=== PATIENT | female | born 1995 | race Caucasian/White ===

== ENCOUNTER 2020-04-15 12:55 | Outpatient (CLI) | payer BC, MEDICAID, SELFPAY ==
[2020-04-15] VITALS (7 sets, daily range): BP systolic 110–129; BP diastolic 63–76; PULSE 88–110; TEMP 36.9; O2SAT 99; BMI 22.4
[2020-04-15 13:30] LABS: Hematocrit 35.4 % (37-47); Hemoglobin 11.9 g/dL (12.0-15.0); Mean Corp Hgb Conc 33.6 g/dL (32-36); Mean Corpuscular Hgb 30.1 pg (27.0-32.0); Mean Corpuscular Volume 89.4 fL (81-99); Mean Platelet Vol. 11.5 fl (6.2-12.0); Platelet Count 143 K/mm3 (150-450); RBC Distribution Width CV 12.3 % (11.6-14.6); RBC Distribution Width SD 39.8 fl (35.1-43.9); Red Blood Count 3.96 M/mm3 (4.2-5.4); White Blood Count 7.4 K/mm3 (4.4-11.0)
[2020-04-15 13:39] LABS: Prothrombin Time (Protime)PT. 12.9 SECONDS (11.7-14.9)
[2020-04-15 13:40] LABS: Partial Thromboplast Time 26.2 Seconds (24.1-36.2)
[2020-04-15 13:43] LABS: Protein, Urine (Random) < 6.0 mg/dL (<11.9)
[2020-04-15 13:44] LABS: AST(SGOT) 12 U/L (15-37); Alanine Aminotransfer ALT/SGPT 17 U/L (13-56); Creatinine, Serum 0.57 mg/dL (0.55-1.02); EST Glomerular Filtration Rate 138 mL/min (>60); Est Glom Filt Rate - Afr Amer 167 mL/min (>60); Uric Acid 4.1 mg/dL (2.6-6.0)
--- NOTE | 2020-04-15 14:43 | OB.TRI.NOTE ---
- Problem List (1) Elevated BP without diagnosis of hypertension Status: Acute History of Present Illness Date of Service: 04/15/20 Was patient seen by the physician?: No Reason For Visit: EBP Date of Service: 04/15/20 Final MANISHA: 05/27/20 Gestational age: 34 Weeks and 0 Days History of Present Illness: Patient is a at 34.0 weeks gestation that presented in the office with increased blood pressures taken at home. Patient had headache last Monday and had emesis x2. Denies current headache, vision changes or RUQ pain. While in office, had some elevated pressures and was sent to labor and delivery to have pre-e labs and urine taken. Allergies Penicillins [PCN] Allergy (Verified 04/15/20 14:47) PT UNSURE OF REACTION Laboratory Studies: Laboratory Tests 04/15/20 04/15/20 04/15/20 Range/Units 13:20 13:20 13:20 WBC 7.4 (4.4-11.0) K/mm3 RBC 3.96 L (4.2-5.4) M/mm3 Hgb 11.9 L (12.0-15.0) g/dL Hct 35.4 L (37-47) % MCV 89.4 (81-99) fL MCH 30.1 (27.0-32.0) pg MCHC 33.6 (32-36) g/dL RDW Std Deviation 39.8 (35.1-43.9) fl RDW Coeff of Marleny 12.3 (11.6-14.6) % Plt Count 143 L (150-450) K/mm3 MPV 11.5 (6.2-12.0) fl PT 12.9 (11.7-14.9) SECONDS INR 1.0 APTT 26.2 (24.1-36.2) Seconds Creatinine 0.57 (0.55-1.02) mg/dL Estim Creat Clear Calc 170.10 ml/min Est GFR (MDRD) Af Amer 167 (>60) mL/min Est GFR (MDRD) Non-Af 138 (>60) mL/min Uric Acid 4.1 (2.6-6.0) mg/dL AST 12 L (15-37) U/L ALT 17 (13-56) U/L U Random Total Protein (<11.9) mg/dL Urine Creatinine (NO RANGE EST.) mg/dL Protein/Creatinin Ratio 04/15/20 Range/Units 13:10 WBC (4.4-11.0) K/mm3 RBC (4.2-5.4) M/mm3 Hgb (12.0-15.0) g/dL Hct (37-47) % MCV (81-99) fL MCH (27.0-32.0) pg MCHC (32-36) g/dL RDW Std Deviation (35.1-43.9) fl RDW Coeff of Marleny (11.6-14.6) % Plt Count (150-450) K/mm3 MPV (6.2-12.0) fl PT (11.7-14.9) SECONDS INR APTT (24.1-36.2) Seconds Creatinine (0.55-1.02) mg/dL Estim Creat Clear Calc ml/min Est GFR (MDRD) Af Amer (>60) mL/min Est GFR (MDRD) Non-Af (>60) mL/min Uric Acid (2.6-6.0) mg/dL AST (15-37) U/L ALT (13-56) U/L U Random Total Protein < 6.0 (<11.9) mg/dL Urine Creatinine 21.00 (NO RANGE EST.) mg/dL Protein/Creatinin Ratio TNP Physical Exam Vitals: Vital Signs Temp Pulse BP Pulse Ox 98.5 F 89 110/69 99 04/15/20 13:14 04/15/20 14:30 04/15/20 14:30 04/15/20 13:14 NST - FHR Rate Baby A Baseline: 145 Variability:: Moderate Accelerations:: 15 x 15 Decelerations:: None FHR Category:: Category I Uterine Activity:: none Impression/Plan Patient is a at 34 weeks gestation with increased blood pressures in office. A/P Pre eclampsia labs and protein/creat ratio normal Pressures while in triage were : 110/69, 113/64, 115/63, 119/65 Patient denies any headache, vision changes or RUQ pain Plan: Discharge patient home Patient to take and record daily BP and report findings to Td Posey next week (35 weeks gestation) Patient to come into office at 36 weeks for JOSE Patient to call or come to hospital if any severe headaches, vision changes , RUQ pain or severe range BPs Dr. Posey agrees with plan of care
== END 2020-04-15 14:50 | disposition home or self-care (01) ==
LOC: WPOUT 13:09 → OBT 13:10
PROVIDERS: Referring Provider Advanced Practice Midwife; Visit Provider Advanced Practice Midwife
DX: O16.3 Unspecified maternal hypertension, third trimester (principal); Z3A.34 34 weeks gestation of pregnancy
CPT/HCPCS: 36415; 59025; 59050; 82565; 82570; 84156; 84450; 84460; 84550; 85027; 85610; 85730; 99218; G0378

== ENCOUNTER → 2020-05-18 09:45 | Outpatient (CLI) | payer BC, MEDICAID, SELFPAY ==
[2020-04-15 13:31] VITALS: BMI 22.4
== END ==
PROVIDERS: Referring Provider Obstetrics & Gynecology; Visit Provider Obstetrics & Gynecology
DX: Z11.59 Encounter for screening for other viral diseases (principal)
CPT/HCPCS: 87635; G2023; U0003

== ENCOUNTER 2020-05-21 17:05 | Inpatient (IN) | payer BC, MEDICAID, SELFPAY ==
[2020-04-15 13:31] VITALS: BMI 22.4
[2020-05-21] VITALS (10 sets, daily range): BP systolic 111–143; BP diastolic 67–94; PULSE 62–90; TEMP 36.4–37.2; O2SAT 91–100; BMI 23.1
[2020-05-21] MEDS: 0.9% Normal Saline Single 100 ML IV.SOLN. IY (17:25)
[2020-05-21] MEDS: Lactated Ringers 1,000 ML 50 ML IV (17:32)
[2020-05-21 18:01] LABS: Absolute Lymphocyte Count 0.99 X10^3/uL (0.83-4.51); Absolute Neutrophil Count 5.9 X10^3/uL (2.0-7.7); Basophil# 0.01 X10^3/uL; Basophil% 0.1 % (0-1); Eosinophil# 0.03 X10^3/uL; Eosinophils% 0.4 % (0-5); Hematocrit 37.1 % (37-47); Hemoglobin 12.3 g/dL (12.0-15.0); Lymphocyte # 0.99 X10^3/ul (4.0); Lymphocyte % 13.2 % (19-41); Mean Corp Hgb Conc 33.2 g/dL (32-36); Mean Corpuscular Hgb 29.8 pg (27.0-32.0); Mean Corpuscular Volume 89.8 fL (81-99); Mean Platelet Vol. 12.8 fl (6.2-12.0); Monocyte# 0.57 X10^3/uL; Monocyte% 7.6 % (0-10); NRBC Flagged by Analyzer 0 % (0-5); Neutrophil # 5.88 X10^3/uL (2.7-7.7); Neutrophil % 78.2 % (47-70); Platelet Count 154 K/mm3 (150-450); RBC Distribution Width CV 12.8 % (11.6-14.6); RBC Distribution Width SD 41.1 fl (35.1-43.9); Red Blood Count 4.13 M/mm3 (4.2-5.4); White Blood Count 7.5 K/mm3 (4.4-11.0)
--- NOTE | 2020-05-21 18:10 | PCM.HP.OB ---
- Problem List (1) 39 weeks gestation of Status: Acute (2) Thrombocytopenia affecting Status: Acute (3) Ramesh-Danlos syndrome Status: Acute (4) Group beta Strep positive Status: Acute History Date of Admission: 05/21/20 Gestational age: 39.1 History of this : This is a 25 year-old, G [1], P [0], at 39.1 weeks gestational age here for induction of labor. Reports cramping has increased over the last couple of days. Denies any loss of fluid, or vaginal bleeding. Positive movement. course complicated by thrombocytopenia, Ramesh Danlos Syndrome and group beta strep positive. Allergies Penicillins [PCN] Allergy (Mild, Verified 05/21/20 17:45) PT UNSURE OF REACTION had as a child unsure of what the reaction was lactose Allergy (Verified 05/21/20 17:45) Abd cramps/diarrhea Alcohol: None Number of Fetus(es): 1 NST - FHR Rate Baby A Baseline: 140 Variability:: Moderate Accelerations:: 15 x 15 Decelerations:: None NST Reactive:: Yes FHR Category:: Category I Uterine Activity:: Irregular contractions noted History Past Pregnancies: Past Pregnancies Delivery Date Name GA/ Weeks Outcome Route Wt Infant Sex Labor Length Anesthesia Delivery Location Provider FOB Labs: O + Rubella - immune HB- neg HC- neg RPR- NR HIV- NR GC/CH- neg GBS- positive Platelets on 05/06/20 were 150 Expected Delivery Method: Spontaneous Vaginal Review of Systems Constitutional: Denies: Anorexia, Chills, Fever Eyes: Denies: Pain, Vision Change HEENT: Denies: Head Aches Cardiovascular: Denies: Chest Pain, Edema Respiratory: Denies: Cough, Shortness of Breath Gastrointestinal: Denies: Abdominal Pain Genitourinary: Denies: Dysuria Physical Exam Vitals: Vital Signs Pulse BP 84 123/80 H 05/21/20 17:49 05/21/20 17:49 General: Alert, Oriented x3 Cardiovascular: Regular rate Lungs: Normal air movement Abdomen: Soft, Non Tender, Gravid Neurological: Cranial nerves II-XII grossly intact Estimated gestational size: Appropriate for gestational size Presentation: Cephalic Cervix Dilation (cm): 1.5 Station: -2 Effacement (%): 70 Assessment/Plan All Active Problems Elevated BP without diagnosis of hypertension (Acute) 39 weeks gestation of (Acute) Thrombocytopenia affecting (Acute) Ramesh-Danlos syndrome (Acute) Group beta Strep positive (Acute) This is a 25 year-old, G [1], P [0], at 39.1 weeks gestational age here for induction of labor.- Ramirez score >8, Ramesh Danlos Syndrome A/P Category 1 tracing Admit to Labor and Delivery Routine labs Place Marroquin bulb Start Cytotec 25mcg Po every 4 hours Pain medication as indicated by patient Group Beta Strep- Positive, start Clindamycin IV (PCN allergy) COVID Test completed on 05/18/20- no results at this time Dr. Cagle notified of admission to labor and delivery and plan of care and is the collaborating physician
--- NOTE | 2020-05-21 18:33 | PCM.PN.BLA ---
Progress Note Patient seen at bedside CE completed and S.R.O.M for clear, small amount of fluid 1.5/70/-2 No placement of Marroquin bulb due to SROM Continue with plan of care- Cytotec 25 mcg PO every 4 hours Continue to monitor Anticipate STROKE Vital Signs/Narrative: Vital Signs Pulse BP 05/21/20 17:49 84 123/80 H 05/21/20 17:20 90 143/94 H
[2020-05-21] MEDS: miSOPROStol 25 MCG TABLET PO ×2 (19:36→23:40)
[2020-05-21] MEDS: Acetaminophen 325 MG Tablet PO (23:42)
[2020-05-22] VITALS (56 sets, daily range): BP systolic 102–142; BP diastolic 56–93; PULSE 59–150; RESP 16; TEMP 36–37.2; O2SAT 93–99
[2020-05-22] MEDS: fentaNYL 100 MCG/2 ML Ampul IV (02:03)
[2020-05-22] MEDS: 0.9% Saline Lock 10 ML Syringe IV ×2 (02:03→15:39)
[2020-05-22] MEDS: Lactated Ringers 500 ML 999 ML IV ×2 (03:59→06:25)
[2020-05-22] MEDS: fentaNYL-bupivacaine (epidural) 100 ML BAG EPIDURAL ×2 (05:02→09:08)
[2020-05-22] MEDS: Oxytocin 30 units/NS 500 ml 30 UNITS/500 ML IV.SOLN IV (05:22)
--- NOTE | 2020-05-22 07:15 | PCM.PN.OB ---
Patient Problems: Active and Suspected Problems 39 weeks gestation of (Acute) Thrombocytopenia affecting (Acute) Ramesh-Danlos syndrome (Acute) Group beta Strep positive (Acute) Subjective: Patient seen at bedside. Received epidural and denies any pain. Was able to rest last night. Objective: Pitocin running at 2mu/min. CE- 3.5/80/-1 Continues to leak clear fluid - Physical Exam Vitals/I&O's: Vital Signs Temp Pulse BP Pulse Ox 98.1 F 62 115/73 97 05/22/20 04:30 05/22/20 06:32 05/22/20 06:32 05/22/20 06:25 Weight: 169 lb 4 oz Body Mass Index (BMI) 23.1 Intake and Output for Last 24 Hours 05/20/20 05/21/20 05/22/20 23:59 23:59 23:59 Intake Total 1379.33 / 1379.33 3117.03 / 3117.03 Output Total 100 / 100 250 / 250 Balance 1279.33 / 1279.33 2867.03 / 2867.03 General: Alert, Oriented x3 Lungs: Normal air movement Cardiovascular: Regular Rhythm Abdomen: Soft, Non Tender, Gravid Skin: No rashes Neurological: Cranial nerves II-XII grossly intact Psych/Mental Status: Normal Affect Laboratory Results 05/21/20 17:32: WBC 7.5, RBC 4.13 L, Hgb 12.3, Hct 37.1, MCV 89.8, MCH 29.8, MCHC 33.2, RDW Std Deviation 41.1, RDW Coeff of Marleny 12.8, Plt Count 154, MPV 12.8 H, Immature Gran % (Auto) 0.500, Neut % (Auto) 78.2 H, Lymph % (Auto) 13.2 L, [place] % (Auto) 7.6, Eos % (Auto) 0.4, Baso % (Auto) 0.1, Absolute Neuts (auto) 5.9, Absolute Lymphs (auto) 0.99, Nucleated RBC % 0 05/21/20 17:32: Blood Type O POSITIVE, Antibody Screen NEGATIVE Current Medications Acetaminophen (Tylenol) 325 - 650 mg PO Q4H PRN PRN PRN Reason: Pain Score 1-3/10 Last Admin: 05/21/20 23:42 Dose: 650 mg Documented by: Al Hydroxide/Mg Hydroxide (Mylanta Ii) 15 - 30 ml PO Q4H PRN PRN PRN Reason: INDIGESTION Citric Acid/Sodium Citrate (Bicitra) 30 ml PO X1 PRN PRN Reason: Section Ephedrine Sulfate () 10 mg IV Q10M PRN PRN Reason: hypotension Ephedrine Sulfate () 10 mg IM Q30M PRN PRN Reason: hypotension Fentanyl Citrate (Sublimaze (100mcg Ampule)) 25 - 50 mcg IV Q2H PRN PRN PRN Reason: Pain Score 4-10/10 Last Admin: 05/22/20 02:03 Dose: 50 mcg Documented by: Fentanyl/Bupivacaine/Sodium Chlor () 0 ml EPIDURAL UD [facility]; Protocol Last Admin: 05/22/20 05:02 Dose: 100 ml Documented by: Lactated Ringer's () 500 mls @ 999 mls/hr IV .Q31M PRN PRN Reason: Epidural Last Infusion: 05/22/20 04:30 Dose: Infused Documented by: Lactated Ringer's () 500 mls @ 999 mls/hr IV .Q31M PRN PRN Reason: Corrective Measures Last Infusion: 05/22/20 06:57 Dose: Infused Documented by: Lactated Ringer's () 1,000 mls @ 50 mls/hr IV .Q20H [facility] Last Infusion: 05/22/20 06:55 Dose: 200 mls/hr Documented by: Oxytocin/Sodium Chloride () 30 units in 500 mls @ 2 mls/hr IV .Q250H [facility] Last Infusion: 05/22/20 06:43 Dose: 0 mls/hr Documented by: Clindamycin Phosphate 900 mg/ (Dextrose) 106 mls @ 150 mls/hr IV Q8H [facility] Last Infusion: 05/22/20 03:00 Dose: Infused Documented by: Naloxone HCl 4 mg/ Dextrose 504 mls @ 0 mls/hr IV .Q0M PRN; Protocol PRN Reason: To maintain Resp. rate >10 Nalbuphine HCl (Nubain) 5 mg IV Q3H PRN PRN PRN Reason: ITCHING Naloxone HCl (Narcan) 0.02 mg IV Q1M PRN PRN Reason: RR< 10 AND PT UNRESPONSIVE Ondansetron HCl (Zofran) 4 mg IV Q4H PRN PRN PRN Reason: NAUSEA Prochlorperazine Edisylate (Compazine Iv) 10 mg IV Q6H PRN PRN PRN Reason: NAUSEA Sodium Chloride () 10 - 40 ml IV X1 PRN PRN Reason: SALINE FLUSH Last Admin: 05/22/20 02:03 Dose: 10 ml Documented by: Medical Necessity - Tobacco Use Smoking Status: Never smoker Assessment/Plan All Active Problems Elevated BP without diagnosis of hypertension (Acute) 39 weeks gestation of (Acute) Thrombocytopenia affecting (Acute) Ramesh-Danlos syndrome (Acute) Group beta Strep positive (Acute) A/P at 39.2 weeks gestation for induction of labor Continue plan of care GBS + Clindamycin 900 mg every 8 hours until delivery Titrate pitocin IV per protocol Dr. Posey updated on patient's status Anticipate
[2020-05-22] MEDS: Ondansetron 4 MG/2 ML Vial IV (07:21)
[2020-05-22] MEDS: proCHLORPERazine 10 MG/2 ML Vial IV (08:32)
[2020-05-22] MEDS: Lactated Ringers 1,000 ML 200 ML IV (09:08)
[2020-05-22] MEDS: Oxytocin 30 units/NS 500 ml 30 UNITS/500 ML IV.SOLN 334 UNITS IV (13:15)
--- NOTE | 2020-05-22 13:35 | PCM.OPRPT ---
Problem List (1) Vaginal delivery Status: Acute (2) 39 weeks gestation of Status: Acute (3) Ramesh-Danlos syndrome Status: Acute (4) Group beta Strep positive Status: Acute Report of Operation Date of Procedure: 05/22/20 Pre-Operative Diagnosis: 39 week gestation, primiparous patient, hypermobile EDS, matenal discomfort Post-Operative Diagnosis: As above Surgery/Procedure Performed:: Description of Surgical Findings:: Complete and pushing. Patient pushed for about 30 minutes. Head of infant was delivered in occiput anterior position over a second-degree laceration. The shoulders, followed by the body of the , were delivered without any force or delay. A viable male infant was delivered easily and atraumatically and placed on maternal abdomen. Cord was clamped and cut after 60 sec delay. Cord gases were obtained. Placenta was delivered spontaneously. Placenta was normal noted to be normal-appearing and intact with a three-vessel cord. Uterus was explored x1. Bleeding hemostatic and fundus firm. A second-degree perineal laceration was repaired in usual fashion using 3-0 Vicryl. Vaginal sweep was performed. Sponge and instrument counts were correct. Type of Anesthesia:: Epidural Special Medications: None Specimen's removed: Placenta Drains: Marroquin Estimated Blood Loss (mL): 350 Description of Procedure: See above Grafts/Implants Used: None - Complications None - Admit VTE Documentation VTE Present on Admission: No Vaginal Delivery Maternal Presentation: Elective Induction Method of Induction: Pitocin, Cytotec Amniotic Membrane Rupture Type: Artificial Amniotic Fluid Description: Clear Surgery/ Procedure Performed: Spontaneous Vaginal Delivery Type of Anesthesia: Epidural Presentation: Vertex Placental Delivery Description: Spontaneous Cord Vessel Description: 3 Vessels Cord Entanglement: None Drain: Marroquin to straight drain Infant A gender: Male (1 minute): 8 (5 minute): 9 Episiotomy Description: None Laceration: 2nd degree Medications given after delivery: IV Pitocin Complications: None
[2020-05-22] MEDS: Ibuprofen 600 MG Tablet PO ×2 (15:20→23:53)
[2020-05-22] MEDS: Acetaminophen 500 MG Tablet 1000 MG PO (20:10)
[2020-05-23] VITALS (11 sets, daily range): BP systolic 109–129; BP diastolic 66–86; PULSE 65–90; RESP 16–18; TEMP 36.3–37.1; O2SAT 96–97
[2020-05-23] MEDS: Ibuprofen 600 MG Tablet PO ×3 (06:24→18:20)
--- NOTE | 2020-05-23 07:33 | PCM.PN.OB ---
Patient Problems: Active and Suspected Problems 39 weeks gestation of (Acute) Thrombocytopenia affecting (Acute) Ramesh-Danlos syndrome (Acute) Group beta Strep positive (Acute) Vaginal delivery (Acute) Subjective: Patient doing well. Ambulating and voiding without difficulty. Tolerating regular diet without nausea or vomiting. Lochia normal. She denies lightheadedness, dizziness, chest pain, shortness of breath, leg pain. She is bottle feeding. - Physical Exam Vitals/I&O's: Vital Signs Temp Pulse Resp BP Pulse Ox 98.7 F 65 16 109/66 99 05/23/20 04:00 05/23/20 04:31 05/23/20 04:00 05/23/20 04:31 05/22/20 15:35 Oxygen Delivery Method Room Air Weight: 169 lb 4 oz Body Mass Index (BMI) 23.1 Intake and Output for Last 24 Hours 05/21/20 05/22/20 05/23/20 23:59 23:59 23:59 Intake Total 1379.33 / 1379.33 6419.81 / 6419.81 Output Total 100 / 100 3400 / 3400 Balance 1279.33 / 1279.33 3019.81 / 3019.81 General: Alert, No apparent distress HEENT: Atraumatic Abdomen: Soft, Non-Distended Extremities: No edema Skin: No rashes Neurological: Neuro grossly intact Psych/Mental Status: Normal Affect, Appropriate Current Medications Acetaminophen (Tylenol) 1,000 mg PO Q8H PRN PRN PRN Reason: Pain Score 1-3/10 Last Admin: 05/22/20 20:10 Dose: 1,000 mg Documented by: Bisacodyl (Dulcolax) 10 mg RECTAL UD PRN PRN Reason: If no BM Dibucaine (Dibucaine) 1 applic TOPICAL TID PRN PRN; Protocol PRN Reason: Discomfort Hydrocortisone (Hytone) 1 applic TOPICAL TID PRN PRN; Protocol PRN Reason: Discomfort Ibuprofen (Motrin) 600 mg PO Q6H PRN PRN PRN Reason: Pain Score 1-3/10 Last Admin: 05/23/20 06:24 Dose: 600 mg Documented by: Methylergonovine Maleate (Methergine) 0.2 mg IM X1 PRN PRN Reason: Excess bleeding/uterine atony Ondansetron HCl (Zofran) 4 mg IV Q4H PRN PRN PRN Reason: Nausea Senna/Docusate Sodium (Senokot-S, Maribell-Colace) 1 - 2 tablet PO DAILY PRN PRN PRN Reason: Constipation Simethicone (Mylicon) 80 mg PO PCHS PRN PRN Reason: Indigestion/Stomach pain Sodium Chloride () 5 - 15 ml IV UD PRN PRN Reason: SALINE FLUSH Last Admin: 05/22/20 15:39 Dose: 10 ml Documented by: Medical Necessity - Tobacco Use Smoking Status: Never smoker Assessment/Plan All Active Problems Elevated BP without diagnosis of hypertension (Acute) 39 weeks gestation of (Acute) Thrombocytopenia affecting (Acute) Ramesh-Danlos syndrome (Acute) Group beta Strep positive (Acute) Vaginal delivery (Acute) Patient is day 1 status post a spontaneous vaginal delivery. She is doing well. Bottlefeeding. Routine care anticipate discharge home tomorrow.
[2020-05-23] MEDS: Acetaminophen 500 MG Tablet 1000 MG PO (22:59)
[2020-05-24] MEDS: Ibuprofen 600 MG Tablet PO ×2 (00:46→06:52)
[2020-05-24 01:07] VITALS: BP 124/78; PULSE 88; TEMP 36.6
[2020-05-24 01:08] VITALS: BP 124/78; PULSE 88; RESP 18; TEMP 36.6
[2020-05-24 08:18] VITALS: TEMP 36.4
[2020-05-24 08:19] VITALS: BP 124/79; PULSE 93
--- NOTE | 2020-05-24 08:26 | PCM.PN.OB ---
Patient Problems: Active and Suspected Problems 39 weeks gestation of (Acute) Thrombocytopenia affecting (Acute) Ramesh-Danlos syndrome (Acute) Group beta Strep positive (Acute) Vaginal delivery (Acute) Subjective: Patient doing well. Ambulating and voiding without difficulty. Tolerating regular diet without nausea or vomiting. Lochia normal. Denies lightheadedness, dizziness, chest pain, shortness of breath, leg pain. Bottle Feeding. - Physical Exam Vitals/I&O's: Vital Signs Temp Pulse Resp BP Pulse Ox 97.5 F L 93 18 124/79 H 97 05/24/20 08:18 05/24/20 08:19 05/24/20 01:08 05/24/20 08:19 05/23/20 14:01 Oxygen Delivery Method Room Air Weight: 169 lb 4 oz Body Mass Index (BMI) 23.1 Intake and Output for Last 24 Hours 05/22/20 05/23/20 05/24/20 23:59 23:59 23:59 Intake Total 6419.81 / 6419.81 Output Total 3400 / 3400 Balance 3019.81 / 3019.81 General: Alert, No apparent distress HEENT: Atraumatic Abdomen: Soft, Non-Distended Extremities: No edema, No Calf Tenderness Skin: No rashes Neurological: Neuro grossly intact Psych/Mental Status: Normal Affect, Appropriate Current Medications Acetaminophen (Tylenol) 1,000 mg PO Q8H PRN PRN PRN Reason: Pain Score 1-3/10 Last Admin: 05/23/20 22:59 Dose: 1,000 mg Documented by: Bisacodyl (Dulcolax) 10 mg RECTAL UD PRN PRN Reason: If no BM Dibucaine (Dibucaine) 1 applic TOPICAL TID PRN PRN; Protocol PRN Reason: Discomfort Hydrocortisone (Hytone) 1 applic TOPICAL TID PRN PRN; Protocol PRN Reason: Discomfort Ibuprofen (Motrin) 600 mg PO Q6H PRN PRN PRN Reason: Pain Score 1-3/10 Last Admin: 05/24/20 06:52 Dose: 600 mg Documented by: Methylergonovine Maleate (Methergine) 0.2 mg IM X1 PRN PRN Reason: Excess bleeding/uterine atony Ondansetron HCl (Zofran) 4 mg IV Q4H PRN PRN PRN Reason: Nausea Senna/Docusate Sodium (Senokot-S, Maribell-Colace) 1 - 2 tablet PO DAILY PRN PRN PRN Reason: Constipation Simethicone (Mylicon) 80 mg PO PCHS PRN PRN Reason: Indigestion/Stomach pain Sodium Chloride () 5 - 15 ml IV UD PRN PRN Reason: SALINE FLUSH Last Admin: 05/22/20 15:39 Dose: 10 ml Documented by: Medical Necessity - Tobacco Use Smoking Status: Never smoker Assessment/Plan All Active Problems Elevated BP without diagnosis of hypertension (Acute) 39 weeks gestation of (Acute) Thrombocytopenia affecting (Acute) Ramesh-Danlos syndrome (Acute) Group beta Strep positive (Acute) Vaginal delivery (Acute) She is day 2 after a spontaneous vaginal delivery. She is doing well and desires to go home. Discharge instructions and follow-up reviewed.
[2020-05-24 08:30] VITALS: BP 124/79; PULSE 93; RESP 14; TEMP 36.3
--- NOTE | 2020-05-24 08:31 | DCINST_ITS ---
Discharge Diet: No Restrictions Discharge Activity: May Shower May resume sexual activity in: 6 weeks Ice area for (Minutes): 15 Weight Bearing Status: Weight bearing as tolerated Lifting Restrictions: Do not lift anything heavier than baby for 4 weeks Call your doctor if you observe: Fever of 101 or Higher, Inability to urinate, Inability to have a bowel movement, Using more than one pad per hour, Shortness of breath, Dizziness, Chest pain, Increased palpitations (irregular heartbeat), Calf discomfort, Uncontrolled pain Cleanse incision/area with: Soap & Water Additional Instructions: If you experience any of the following, contact your healthcare provider. * Bleeding that soaks a pad every hour for 2 hours * Fever 100.4 or higher * Unrelieved incision or abdominal pain * Swelling, redness, discharge or bleeding from your incision or episiotomy site * Your incision begins to separate * Problems urinating (including inability to urinate or burning while urinating). * Visual changes * Severe headache * Flu-like symptoms * Pain or redness in one of both of your breasts * Pain, warmth, tenderness or swelling in your legs, especially the calf area * Frequent nausea and vomiting * Symptoms of depression or anxiety If you experience any of the following, call 911 or go to the nearest Emergency Room. * Chest pain * Problems breathing * Seizure activity * Partial or complete paralysis of a body part, slurred speech, weakness or drooping of the face, or a sudden inability to walk or hold your balance Allergies/Adverse Reactions: Allergies Penicillins [PCN] Allergy (Mild, Verified 05/21/20 17:45) PT UNSURE OF REACTION had as a child unsure of what the reaction was lactose Allergy (Verified 05/21/20 17:45) Abd cramps/diarrhea Please Follow Up With: Sandra Posey DO When: 1-2 weeks for virtual visit and in 6 weeks in the office for visit Primary Care Physician: Care Physician,No Primary [Primary Care Provider] - Test Results: Test results from this visit will be discussed in further detail at your follow- up appointment, if applicable.
[2020-05-24] MEDS: Acetaminophen 500 MG Tablet 1000 MG PO (09:18)
== END 2020-05-24 09:30 | disposition home or self-care (01) | DRG 806 ==
PROVIDERS: Obstetrics & Gynecology; Admitting Provider Obstetrics & Gynecology; Referring Provider Obstetrics & Gynecology; Visit Provider Obstetrics & Gynecology
DX: O99.12 Other diseases of the blood and blood-forming organs and certain disorders involving the immune mechanism complicating childbirth (principal); Q79.60 Ehlers-Danlos syndrome, unspecified; Z37.0 Single live birth; D69.6 Thrombocytopenia, unspecified; Z3A.39 39 weeks gestation of pregnancy; O99.824 Streptococcus B carrier state complicating childbirth; O70.1 Second degree perineal laceration during delivery
CPT/HCPCS: 59025; 59050; 85025; 86850; 86900; 86901; 99218; J7120; A4216; G0378; J2405

== ENCOUNTER 2022-05-15 10:15 | Outpatient (CLI) | payer BC, MEDICAID, SELFPAY ==
[2022-05-15 10:21] VITALS: BMI 22.9
--- NOTE | 2022-05-15 10:23 | OB.TRI.HP_ITS ---
HPI - General HPI Narrative SCOTT BENNETT, is a 27 F at 36.1 weeks gestation who presents to triage with contactions that started earlier this weekend. She reports loosing her mucous plug on Monday and has felt contractions on and off since. Denies any loss of fluid or vaginal bleeding. Positive movement. Patient with Ramesh- Danlos syndrome and followed by MFM. Maternal Data Information MANISHA Calculator Estimated Delivery Date Method Current WG Current Estimate 06/11/22 Manual 36w 1d Final MANISHA: 06/11/22 PFSH [facility] Medical History (Updated 05/15/22 @ 10:29 by Donna Hogan CNM) Ramesh-Danlos syndrome Home Medications [id number] 1 mg tablet 1 tab PO DAILY Check with primary doctor 05/15/22 [History Last Taken Unknown] Allergy/AdvReac Type Severity Reaction Status Date / Time Penicillins [PCN] Allergy Mild PT UNSURE Verified 05/15/22 10:34 OF REACTION lactose Allergy Abd Verified 05/15/22 10:34 cramps/diarrhea Social History Smoking Status: Never smoker History Elective abortions Hx Para 0 Spontaneous abortions Hx # Term Pregnancies Ectopic pregnancies Hx # Pregnancies Multiple births # of living children ROS Eyes Eyes: Denies blurry vision Cardiovascular Cardiovascular: Reports none; Denies chest pain at rest, chest pain with activity or dizziness Respiratory/Chest Respiratory/Chest: Denies cough or dyspnea Gastrointestinal Gastrointestinal: Reports none and other; Denies diarrhea or vomiting Genitourinary Genitourinary: Denies dysuria Musculoskeletal Musculoskeletal: Reports none Integumentary Integumentary: Reports none; Denies rash Neurologic Neurologic: Denies dizziness, headache(s) or other visual disturbances Psychiatric Psychiatric: Reports none Physical Exam Const alert and no apparent distress General Appearance: cooperative Orientation / Consciousness: awake Exam Limitations: no limitations HEENT normocephalic Eyes General Eye: normal appearance of both eyes Neck full ROM Chest inspection of chest normal Resp normal respiratory effort and normal air movement Effort and Inspection: symmetric chest movement Auscultation: clear to auscultation bilaterally Cardio regular rate GI soft to palpation, non-tender and non-distended Inspection: and other Back/Spine normal ROM Extremity full ROM, normal capillary refill and no calf tenderness Skin no rashes or lesions noted Neuro oriented x3 and CN's II-XII intact bilaterally Psych mental status grossly normal NST FHR Rate Baby A Baseline: 155 Variability:: Moderate Accelerations:: 15 x 15 Decelerations:: None NST Reactive:: Yes FHR Category:: Category I Uterine Activity:: occasional Assessment & Plan (1) Ramesh-Danlos syndrome: (2) 36 weeks gestation of : (3) Uterine contractions: PLAN: Plan NST reactive- Cat, 1 tracing CE- 1.5/50/-2 Monitor and recheck of CE is unchanged Labor precautions and kick counts reviewed D/C home with follow up in office
[2022-05-15 10:29] VITALS: TEMP 36.8
[2022-05-15 10:38] VITALS: BP 117/78; PULSE 85; O2SAT 95
== END 2022-05-15 11:50 | disposition home or self-care (01) ==
LOC: WPOUT 10:19 → WP 10:20
PROVIDERS: Visit Provider Advanced Practice Midwife
DX: O47.03 False labor before 37 completed weeks of gestation, third trimester (principal); Z3A.36 36 weeks gestation of pregnancy; Q79.60 Ehlers-Danlos syndrome, unspecified
CPT/HCPCS: 59025; 59050; 99218; G0378

== ENCOUNTER 2022-05-18 17:08 | Outpatient (CLI) | payer BC, MEDICAID, SELFPAY ==
[2022-05-18 17:33] VITALS: BP 125/76; PULSE 96; TEMP 37.2; O2SAT 99
[2022-05-18 18:11] VITALS: BMI 22.6
[2022-05-18 18:44] LABS: ROM Internal Control Test YES-OK TO RESULT pt. (Internal QC); ROM Patient Test Negative (Negative)
--- NOTE | 2022-05-18 19:23 | OB.TRI.HP_ITS ---
HPI - General General Date of Service: 05/18/22 Chief Complaint: r/o ROM HPI Narrative SCOTT BENNETT, is a 27 F @ 36.4 weeks who presents from office for ROM plus to r/o ROM. pt had + nitrazine but negative pooling and ferning. Maternal Data Information MANISHA Calculator Estimated Delivery Date Method Current WG Current Estimate 06/11/22 Manual 36w 4d PFSH PFSH Medical History (Updated 05/18/22 @ 19:[address] Tamela Avalos MD) Anxiety Ramesh-Danlos syndrome Hypothyroid Tonsillectomy planned Home Medications kvygwyzz-yrt-Ti-FA 1 mg tablet 1 tab PO DAILY Check with primary doctor 05/15/22 [History Last Taken Unknown] famotidine 1 tablet PO.IVFORM DAILY heartburn 05/18/22 [History Last Taken Unknown] Allergy/AdvReac Type Severity Reaction Status Date / Time Penicillins [PCN] Allergy Mild PT UNSURE Verified 05/15/22 10:34 OF REACTION lactose Allergy Abd Verified 05/15/22 10:34 cramps/diarrhea Family History (Updated 05/18/22 @ 18:29 by Bev Bartholomew) Sister Congenital heart anomaly Mother Sickle cell anemia Surgical History (Updated 05/18/22 @ 18:27 by Bev Bartholomew) [place] teeth extracted Social History Smoking Status: Never smoker History Elective abortions Hx Para 0 Spontaneous abortions Hx # Term Pregnancies Ectopic pregnancies Hx # Pregnancies Multiple births # of living children NST FHR Rate Baby A Baseline: 150 Variability:: Moderate Accelerations:: 15 x 15 Decelerations:: Prolonged (1744 pt had possible prolonged decel to 110-120 with good variability- Unsure if patient was moving during that time- remainder of tracing from approx [id number] remained cat1 reactive ) NST Reactive:: Yes FHR Category:: Category I Uterine Activity:: occasional Assessment & Plan (1) Threatened labor: (2) Intact amniotic membranes: PLAN: Plan @ 36.4 weeks- Membranes intact ROM PLUS was negative for rupture NST reactive cat 1- reviewed tracing- ?? prolonged- tracing after this was reactive cat 1 for approx 60min follow up in office
== END 2022-05-18 19:05 | disposition home or self-care (01) ==
LOC: WPOUT 17:14 → WP 17:14
PROVIDERS: Referring Provider Obstetrics & Gynecology; Visit Provider Obstetrics & Gynecology
DX: O47.03 False labor before 37 completed weeks of gestation, third trimester (principal); Z3A.36 36 weeks gestation of pregnancy; O99.891 Other specified diseases and conditions complicating pregnancy; Q79.60 Ehlers-Danlos syndrome, unspecified
CPT/HCPCS: 59025; 59050; 84112; 99218; G0378

== ENCOUNTER 2022-05-22 07:24 | Outpatient (CLI) | payer BC, MEDICAID, SELFPAY ==
[2022-05-22 07:44] VITALS: BP 116/79; PULSE 88
[2022-05-22 07:53] VITALS: TEMP 36.7
[2022-05-22 08:10] VITALS: BMI 22.4
--- NOTE | 2022-05-23 04:21 | OB.TRI.PN ---
Progress Notes Progress Note: at 37w1d for possible labor. Having complaint of irregular uterine contractions and fearful of precipitous . Contractions on and off and every 10 minutes. No leakage of fluid or vaginal bleeding. Good movement. O: FHT: 155, moderate variability, accels, no decels, reactive NST. Contractions initially but after walking decreased and not timeable, uterine irritability. Cervix: 4cm per nursing staff, repeat cervical check unchanged Assessment & Plan (1) False labor: PLAN: 1) False labor at this time. Nursing reviewed with patient when to call. PO hydration 2) NST reactive 3) History of Ramesh Danlos syndrome. notified of patient status and agrees with plan for discharge (2) Ramesh-Danlos syndrome: (3) Uterine contractions: (4) 37 weeks gestation of :
== END 2022-05-22 10:08 | disposition home or self-care (01) ==
LOC: WPOUT 07:30 → WP 07:31
PROVIDERS: Referring Provider Advanced Practice Midwife; Visit Provider Advanced Practice Midwife
DX: O47.03 False labor before 37 completed weeks of gestation, third trimester (principal); Z3A.37 37 weeks gestation of pregnancy; O99.891 Other specified diseases and conditions complicating pregnancy; Q79.60 Ehlers-Danlos syndrome, unspecified
CPT/HCPCS: 59025; 59050; 99218; G0378

== ENCOUNTER 2022-05-26 12:25 | Inpatient (IN) | payer BC, MEDICAID, SELFPAY ==
[2022-05-26] VITALS (50 sets, daily range): BP systolic 103–131; BP diastolic 59–93; PULSE 65–118; RESP 16; TEMP 36.4–37; O2SAT 97–100; BMI 22.6
[2022-05-26] MEDS: Lactated Ringers 1,000 ML 999 ML IV (10:25)
[2022-05-26 10:45] LABS: Hematocrit 31.5 % (37-47); Hemoglobin 10.3 g/dL (12.0-15.0); Mean Corp Hgb Conc 32.7 g/dL (32-36); Mean Corpuscular Hgb 27.2 pg (27.0-32.0); Mean Corpuscular Volume 83.3 fL (81-99); Mean Platelet Vol. 12.3 fl (6.2-12.0); Platelet Count 147 K/mm3 (150-450); RBC Distribution Width CV 13.1 % (11.6-14.6); RBC Distribution Width SD 38.8 fl (35.1-43.9); Red Blood Count 3.78 M/mm3 (4.2-5.4); White Blood Count 8.2 K/mm3 (4.4-11.0)
[2022-05-26] MEDS: Ondansetron 4 MG/2 ML Vial IV (10:55)
[2022-05-26 11:08] LABS: ALB/GLOB Ratio 0.7 RATIO (0.9-2.4); AST(SGOT) 8 U/L (15-37); Alanine Aminotransfer ALT/SGPT 11 U/L (13-56); Albumin, Serum 2.4 g/dL (3.2-5.0); Alkaline Phosphatase 105 U/L (45-117); Anion Gap 6 (5-15); BUN 5 mg/dL (7-18); BUN/Creat Ratio 9.4 RATIO (10-20); Calcium,Total 9.1 mg/dL (8.5-10.1); Chloride 110 mmol/L (98-107); Creatinine, Serum 0.53 mg/dL (0.55-1.02); EST Glomerular Filtration Rate 147 mL/min (>60); Est Glom Filt Rate - Afr Amer 177 mL/min (>60); Estimated Creatinine Clearance 185.62 ml/min; Globulin 3.5 g/dL (2.2-4.2); Glucose 112 mg/dL (74-106); Potassium 3.7 mmol/L (3.5-5.1); Protein, Total 5.9 g/dL (6.4-8.2); Sodium Level 139 mmol/L (136-145)
[2022-05-26 11:59] LABS: Protein, Urine (Random) 6.7 mg/dL (<11.9); Protein:Creat Ratio 218 mg/g CRE (0-200)
[2022-05-26] MEDS: Lactated Ringers 1,000 ML 50 ML IV (12:52)
[2022-05-26] MEDS: LACTATED RINGERS 500 ML 999 ML IV (12:52)
[2022-05-26 13:32] LABS: Uric Acid 4.3 mg/dL (2.6-6.0)
[2022-05-26] MEDS: fentaNYL-bupivacaine (epidural) 100 ML BAG EPIDURAL (14:12)
[2022-05-26] MEDS: Acetaminophen 500 MG Tablet PO (16:15)
--- NOTE | 2022-05-26 17:43 | HP.PCM.OB_ITS ---
HPI - General General Date of Admission: 05/26/22 HPI Narrative SCOTT BENNETT, is a 27 F who presents at 37w5d. Presented to office for nausea and vomiting with uncertain if having uterine contractions. No leakage of fluid or vaginal bleeding. Upon evaluation, contractions mild to moderate and grimacing during contractions. To labor and delivery for evaluation and history of Ramesh-Danlos syndrome and risk for precipitous delivery. Made cervical change and decision for admission for active labor. Maternal Data Information MANISHA Calculator Estimated Delivery Date Method Current WG Current Estimate 06/11/22 Manual 37w 5d PFSH PFSH Medical History (Updated 05/26/22 @ 18:33 by Jayleen Oakes CNM) Anxiety Asthma Ramesh-Danlos syndrome (~05/26/22) Headache Hypothyroid Tonsillectomy planned Home Medications zineowyn-poj-Lu-FA 1 mg tablet 1 tab PO DAILY Check with primary doctor 05/15/22 [History Last Taken 05/25/22 17:15] famotidine 1 tablet PO.IVFORM DAILY heartburn 05/18/22 [History Last Taken 05/25/22 17:15] Allergy/AdvReac Type Severity Reaction Status Date / Time Penicillins [PCN] Allergy Mild PT UNSURE Verified 05/26/22 10:29 OF REACTION lactose Allergy Abd Verified 05/26/22 10:29 cramps/diarrhea Family History (Updated 05/18/22 @ 18:29 by Bev Bartholomew) Sister Congenital heart anomaly Mother Sickle cell anemia Surgical History (Updated 05/18/22 @ 18:27 by Bev Bartholomew) [place] teeth extracted Social History Smoking Status: Never smoker History Elective abortions Hx Para 1 Spontaneous abortions Hx # Term Pregnancies Ectopic pregnancies Hx # Pregnancies Multiple births # of living children Visit Details OB Flowsheet Initial Weight: Not Recorded Date -?-?-?-?-?-?-?-?-?-?-?-?- EGA Weight BP Urine Prot -?-?-?-?-?-?-?-?-?-?-?-?- Glucose FHR FuHt Pres Dilation -?-?-?-?-?-?-?-?-?-?-?-?- Effaced St Visit Note 05/26/22 -?-?-?-?-?-?-?-?-?-?-?-?- 37w 5d 167 lb 4 oz 118/84 119/86 122/93 131/88 121/80 130/71 122/69 120/65 114/71 113/68 114/68 103/70 104/63 113/69 129/76 120/72 115/79 128/92 117/73 124/79 -?-?-?-?-?-?--?-?-?-?-?-?- -?-?-?-?-?-?-?-?-?-?-?-?- NST FHR Rate Baby A Baseline: 125 Variability:: Moderate Accelerations:: 15 x 15 Decelerations:: None NST Reactive:: Appropriate for gestational age FHR Category:: Category I Uterine Activity:: Every 2-5 minutes, strong ROS Constitutional Constitutional: Reports systems reviewed and no addt'l complaints, except as documented; Denies headache(s) Eyes Eyes: Denies acute decrease in peripheral vision, blurry vision or change in vision ENT HEENT: Reports systems reviewed and no addt'l complaints, except as documented Cardiovascular Cardiovascular: Denies chest pain or dizziness Respiratory/Chest Respiratory/Chest: Denies cough, dyspnea, dyspnea on exertion, shortness of breath at rest or shortness of breath with exertion Gastrointestinal Gastrointestinal: Denies abdominal pain, diarrhea, nausea or vomiting Genitourinary Genitourinary: Denies abdominal discomfort Musculoskeletal Musculoskeletal: Denies limited range of motion Integumentary Integumentary: Reports systems reviewed and no addt'l complaints, except as documented Neurologic Neurologic: Reports systems reviewed and no addt'l complaints, except as documented Psychiatric Psychiatric: Reports systems reviewed and no addt'l complaints, except as documented Endocrine Endocrinology: Reports systems reviewed and no addt'l complaints, except as documented Hematologic/Lymphatic Hematologic/Lymphatic: Reports systems reviewed and no addt'l complaints, except as documented Allergic/Immunologic Allergic/Immunologic: Reports systems reviewed and no addt'l complaints, except as documented Vital Signs Vital Signs Vital Signs: 05/26/22 10:21 05/26/22 10:21 05/26/22 10:21 Temperature Temperature Source Pulse Rate 103 H 94 Blood Pressure 118/84 H BP Systolic 118 BP Diastolic 84 Pulse Ox 05/26/22 10:21 05/26/22 10:23 05/26/22 10:23 Temperature 98.6 F Temperature Source Temporal Pulse Rate Blood Pressure BP Systolic BP Diastolic Pulse Ox 98 05/26/22 12:54 05/26/22 12:54 05/26/22 12:54 Temperature Temperature Source Temporal Pulse Rate 88 Blood Pressure 119/86 H BP Systolic 119 BP Diastolic 86 Pulse Ox 05/26/22 12:54 05/26/22 12:54 05/26/22 13:55 Temperature 98.6 F Temperature Source Pulse Rate 99 Blood Pressure BP Systolic BP Diastolic Pulse Ox 97 05/26/22 13:55 05/26/22 13:58 05/26/22 13:58 Temperature Temperature Source Pulse Rate 118 H Blood Pressure 122/93 H BP Systolic 122 BP Diastolic 93 Pulse Ox 99 05/26/22 14:00 05/26/22 14:00 05/26/22 14:03 Temperature Temperature Source Pulse Rate 100 Blood Pressure 131/88 H BP Systolic 131 BP Diastolic 88 Pulse Ox 99 05/26/22 14:03 05/26/22 14:05 05/26/22 14:05 Temperature Temperature Source Pulse Rate 95 99 Blood Pressure BP Systolic BP Diastolic Pulse Ox 98 05/26/22 14:08 05/26/22 14:08 05/26/22 14:10 Temperature Temperature Source Pulse Rate 100 99 Blood Pressure 121/80 H BP Systolic 121 BP Diastolic 80 Pulse Ox 05/26/22 14:10 05/26/22 14:14 05/26/22 14:14 Temperature Temperature Source Pulse Rate 80 Blood Pressure 130/71 H BP Systolic 130 BP Diastolic 71 Pulse Ox 98 05/26/22 14:15 05/26/22 14:15 05/26/22 14:19 Temperature Temperature Source Pulse Rate 86 Blood Pressure 122/69 H BP Systolic 122 BP Diastolic 69 Pulse Ox 99 05/26/22 14:19 05/26/22 14:20 05/26/22 14:20 Temperature Temperature Source Pulse Rate 76 86 Blood Pressure BP Systolic BP Diastolic Pulse Ox 98 05/26/22 14:24 05/26/22 14:24 05/26/22 14:25 Temperature Temperature Source Pulse Rate 80 77 Blood Pressure 120/65 BP Systolic 120 BP Diastolic 65 Pulse Ox 05/26/22 14:25 05/26/22 14:29 05/26/22 14:29 Temperature Temperature Source Pulse Rate 80 Blood Pressure 114/71 BP Systolic 114 BP Diastolic 71 Pulse Ox 98 05/26/22 14:30 05/26/22 14:30 05/26/22 14:33 Temperature Temperature Source Pulse Rate 78 Blood Pressure 113/68 BP Systolic 113 BP Diastolic 68 Pulse Ox 98 05/26/22 14:33 05/26/22 14:35 05/26/22 14:35 Temperature Temperature Source Pulse Rate 88 79 Blood Pressure BP Systolic BP Diastolic Pulse Ox 99 05/26/22 14:40 05/26/22 14:40 05/26/22 14:44 Temperature Temperature Source Pulse Rate 79 Blood Pressure 114/68 BP Systolic 114 BP Diastolic 68 Pulse Ox 100 05/26/22 14:44 05/26/22 14:45 05/26/22 14:45 Temperature Temperature Source Pulse Rate 75 71 Blood Pressure BP Systolic BP Diastolic Pulse Ox 99 05/26/22 14:48 05/26/22 14:48 05/26/22 14:50 Temperature Temperature Source Pulse Rate 85 76 Blood Pressure 103/70 BP Systolic 103 BP Diastolic 70 Pulse Ox 05/26/22 14:50 05/26/22 14:54 05/26/22 14:54 Temperature Temperature Source Pulse Rate 83 Blood Pressure 104/63 BP Systolic 104 BP Diastolic 63 Pulse Ox 100 05/26/22 14:55 05/26/22 14:55 05/26/22 14:58 Temperature Temperature Source Pulse Rate 73 Blood Pressure 113/69 BP Systolic 113 BP Diastolic 69 Pulse Ox 100 05/26/22 14:58 05/26/22 15:00 05/26/22 15:00 Temperature Temperature Source Pulse Rate 97 71 Blood Pressure BP Systolic BP Diastolic Pulse Ox 100 05/26/22 15:05 05/26/22 15:05 05/26/22 15:09 Temperature Temperature Source Pulse Rate 78 Blood Pressure 129/76 H BP Systolic 129 BP Diastolic 76 Pulse Ox 99 05/26/22 15:09 05/26/22 15:10 05/26/22 15:10 Temperature Temperature Source Pulse Rate 69 82 Blood Pressure BP Systolic BP Diastolic Pulse Ox 100 05/26/22 15:15 05/26/22 15:15 05/26/22 15:16 Temperature Temperature Source Temporal Pulse Rate 85 Blood Pressure 120/72 BP Systolic 120 BP Diastolic 72 Pulse Ox 05/26/22 15:16 05/26/22 14:43 05/26/22 14:43 Temperature 98.1 F 98.2 F Temperature Source Temporal Pulse Rate Blood Pressure BP Systolic BP Diastolic Pulse Ox 05/26/22 16:12 05/26/22 16:12 05/26/22 16:12 Temperature Temperature Source Temporal Pulse Rate 93 Blood Pressure 115/79 BP Systolic 115 BP Diastolic 79 Pulse Ox 05/26/22 16:12 05/26/22 16:12 05/26/22 16:12 Temperature 98.5 F Temperature Source Pulse Rate 87 Blood Pressure BP Systolic BP Diastolic Pulse Ox 100 05/26/22 17:17 05/26/22 17:17 05/26/22 17:17 Temperature Temperature Source Pulse Rate 115 H Blood Pressure 128/92 H BP Systolic 128 BP Diastolic 92 Pulse Ox 100 05/26/22 17:17 05/26/22 17:17 Temperature 98.1 F Temperature Source Temporal Pulse Rate Blood Pressure BP Systolic BP Diastolic Pulse Ox Weight Weight: 167 lb 4 oz Body Mass Index (BMI) 22.6 Physical Exam Const alert and oriented x3 General Appearance: cooperative Orientation / Consciousness: awake, oriented to person, oriented to place and oriented to time Exam Limitations: no limitations HEENT normocephalic Head and Scalp: normal to inspection, normocephalic and atraumatic Face and Sinus: normal facial exam Eyes General Eye: normal appearance of both eyes Neck full ROM Chest Chest: symmetrical chest wall rise Resp normal respiratory effort and normal air movement Auscultation: clear to auscultation bilaterally Cardio regular rate, regular rhythm, S1 normal heart sound, S2 normal heart sound, no murmurs, no rub, no gallops and no clicks GI normal to inspection, nondistended, normoactive bowel sounds and non-tender appearance of the vagina normal Narrative: AROM clear fluid Bladder / Kidney Exam: no CVA tenderness Manual OB Exam: estimated gestational size appropriate, presentation cephalic, dilated 5cm, effaced 70% and station -1 Back/Spine normal ROM Extremity normal to inspection and full ROM Skin no rashes or lesions noted Neuro oriented x3, CN's II-XII intact bilaterally and moves all extremities Sensorium / Orientation: awake, alert and oriented to person Motor Exam: clonus absent Deep Tendon Reflexes: Rt Patellar (L4): 2+ and Lt Patellar (L4): 2+ Labs Labs Labs: Blood Type O POSITIVE Antibody Screen NEGATIVE Hct 31.5 % (37-47) L Hgb 10.3 g/dL (12.0-15.0) L Rhogam given: No HIV negative RPR negative Hep B negative Hep C negative O positive GBS negative Rubella Immune Assessment & Plan (1) Benign gestational thrombocytopenia: (2) Anxiety: (3) Ramesh-Danlos syndrome: (4) Thrombocytopenia affecting : PLAN: Plan 1) Admit to labor and delivery 2) Routine labs 3) Preeclampsia labs due to nausea and vomiting with mild elevation in office from baseline. No signs of preeclampsia and labs normal 4) Continuous EFM 5) Epidural for pain management 6) collaborative physician
[2022-05-26] MEDS: Oxytocin 30 units/NS 500 ml 30 UNITS/500 ML IV.SOLN 334 UNITS IV (18:23)
--- NOTE | 2022-05-26 18:29 | EX.PCM.OBRPT ---
Assessment & Plan (1) Vaginal delivery: (2) Thrombocytopenia affecting : (3) Ramesh-Danlos syndrome: (4) Anxiety: (5) Benign gestational thrombocytopenia: Maternal Data Information MANISHA Calculator Estimated Delivery Date Method Current WG Current Estimate 06/11/22 Manual 37w 5d Vaginal Delivery Maternal Presentation Maternal Presentation: Active Labor Operative Information Date of Procedure: 05/26/22 Pre-Operative Diagnosis: Active Labor Post-Operative Diagnosis: Surgery / Procedure Performed: Spontaneous Vaginal Delivery Type of Anesthesia: Epidural Estimated Blood Loss: 350 ml Time of Delivery: 18:21 Findings Description of Procedure: Progressed to complete. Pain managed with epidural. of viable male over intact perineum. APGARS 8,9. head delivered and body immediately forth coming. delivered and placed on maternal abdomen, strong cry, mouth and nares suctioned for secretions. Pitocin started for active 3rd stage management. Placenta delivered intact, 3 vessel cord via omar. Perineum inspected and revealed to be intact. Fundus firm, EBL 350ml. Vaginal sweep completed. Sponge and instrument count correct. Mom and baby stable, planning to breastfeed. Family boding well. collaborative physician and notified of delivery. Presentation: DELIA Amniotic Membrane Rupture Type: Artificial Amniotic Fluid Description: Clear Placental Delivery Description: Expressed Placenta Disposition: [facility] Cord Vessel Description: 3 Vessels Cord Entanglement: None A Gender: Male (1 minute): 88 (5 minute): 9 Delayed Cord Clamping: Yes Post Vaginal Delivery Medications Given After Delivery: IV Pitocin Episiotomy Description: None Laceration: None Complication Complications: None Admit VTE Documentation VTE Present on Admission: No
[2022-05-26] MEDS: Ibuprofen 600 MG Tablet PO (20:09)
--- NOTE | 2022-05-26 20:19 | NURSING ---
epidural catheter removed. blue tip intact
[2022-05-27] VITALS (7 sets, daily range): BP systolic 110–122; BP diastolic 67–83; PULSE 75–81; RESP 16; TEMP 36.2–37.1; O2SAT 96
[2022-05-27] MEDS: Ibuprofen 600 MG Tablet PO ×2 (04:12→13:28)
[2022-05-27 04:31] LABS: Hematocrit 30.5 % (37-47); Hemoglobin 9.5 g/dL (12.0-15.0); Mean Corp Hgb Conc 31.1 g/dL (32-36); Mean Corpuscular Hgb 26.8 pg (27.0-32.0); Mean Corpuscular Volume 85.9 fL (81-99); Mean Platelet Vol. 11.7 fl (6.2-12.0); Platelet Count 129 K/mm3 (150-450); RBC Distribution Width CV 13.1 % (11.6-14.6); RBC Distribution Width SD 40.3 fl (35.1-43.9); Red Blood Count 3.55 M/mm3 (4.2-5.4); White Blood Count 9.8 K/mm3 (4.4-11.0)
[2022-05-27] MEDS: Acetaminophen 500 MG Tablet 1000 MG PO (08:48)
[2022-05-27] MEDS: Prenatal Vits Tablet 1 TABLET PO (11:07)
--- NOTE | 2022-05-27 16:39 | PN.OBGYN_ITS ---
Subjective Subjective Doing well per patient and nursing staff. Ambulating and taking PO without difficulty. Voiding and passing flatus. Pain controlled. Bottlefeeding. Denies headache, visual changes, chest pain, shortness of breath, leg pain or increased bleeding. Lochia normal. Objective Data Objective Data Vital Signs: Vital Signs Temp Pulse Resp BP Pulse Ox O2 Del Method 98.6 F 81 16 112/68 96 Room Air 05/27/22 13:19 05/27/22 13:21 05/27/22 13:19 05/27/22 13:21 05/27/22 04:13 05/27/22 13:19 Oxygen Delivery Method Room Air Weight: 167 lb 4 oz Body Mass Index (BMI) 22.6 Intake & Output: Intake and Output for Last 24 Hours 05/25/22 05/26/22 05/27/22 23:59 23:59 23:59 Intake Total 3000.00 / 3000.00 Output Total 1950 / 1950 Balance 1050.00 / 1050.00 Lab / Micro Data Result Diagrams: 05/27/22 04:20 05/26/22 10:20 Labs: Laboratory Results - last 24 hr 05/27/22 04:20: WBC 9.8, RBC 3.55 L, Hgb 9.5 L, Hct 30.5 L, MCV 85.9, MCH 26.8 L , MCHC 31.1 L, RDW Std Deviation 40.3, RDW Coeff of Marleny 13.1, Plt Count 129 L, MPV 11.7 Micro: Microbiology 05/26/22 12:45 Nasal Secretion SARS-CoV-2 Antigen (Rapid) - Final ROS Constitutional Constitutional: Reports systems reviewed and no addt'l complaints, except as documented; Denies headache(s) Eyes Eyes: Denies acute decrease in peripheral vision, blurry vision or change in vision ENT HEENT: Reports systems reviewed and no addt'l complaints, except as documented Cardiovascular Cardiovascular: Denies chest pain or dizziness Respiratory/Chest Respiratory/Chest: Denies cough, dyspnea, dyspnea on exertion, shortness of breath at rest or shortness of breath with exertion Gastrointestinal Gastrointestinal: Denies abdominal pain, diarrhea, nausea or vomiting Genitourinary Genitourinary: Denies abdominal discomfort Musculoskeletal Musculoskeletal: Denies limited range of motion Integumentary Integumentary: Reports systems reviewed and no addt'l complaints, except as documented Neurologic Neurologic: Reports systems reviewed and no addt'l complaints, except as documented Psychiatric Psychiatric: Reports systems reviewed and no addt'l complaints, except as documented Endocrine Endocrinology: Reports systems reviewed and no addt'l complaints, except as documented Hematologic/Lymphatic Hematologic/Lymphatic: Reports systems reviewed and no addt'l complaints, except as documented Allergic/Immunologic Allergic/Immunologic: Reports systems reviewed and no addt'l complaints, except as documented Physical Exam Const alert and oriented x3 General Appearance: cooperative Orientation / Consciousness: awake, oriented to person, oriented to place and oriented to time Exam Limitations: no limitations HEENT normocephalic Head and Scalp: normal to inspection, normocephalic and atraumatic Face and Sinus: normal facial exam Eyes General Eye: normal appearance of both eyes Neck full ROM Chest Chest: symmetrical chest wall rise Resp normal respiratory effort and normal air movement Auscultation: clear to auscultation bilaterally Cardio regular rate, regular rhythm, S1 normal heart sound, S2 normal heart sound, no murmurs, no rub, no gallops and no clicks GI normal to inspection, nondistended, normoactive bowel sounds and non-tender GI Narrative: fundus firm 2 below U appearance of the vagina normal Bladder / Kidney Exam: no CVA tenderness Back/Spine normal ROM Extremity normal to inspection and full ROM Skin no rashes or lesions noted Neuro oriented x3, CN's II-XII intact bilaterally and moves all extremities Sensorium / Orientation: awake, alert and oriented to person Motor Exam: clonus absent Deep Tendon Reflexes: Rt Patellar (L4): 2+ and Lt Patellar (L4): 2+ Assessment & Plan (1) Benign gestational thrombocytopenia: (2) Anxiety: (3) Ramesh-Danlos syndrome: (4) Vaginal delivery: PLAN: Plan 1) Routine care 2) Pain management, declines prescription for motrin, will use OTC 3) Vitals stable 4) Follow up 2 weeks and 6 weeks PP 5) D/C home
--- NOTE | 2022-05-27 16:42 | DS.PCM_ITS ---
Providers Date of Admission: 05/26/22 Primary Care Physician: No Primary Care Phys Reason For Visit: LABOR AND DELIVERY Diagnosis Discharge Diagnosis (1) Benign gestational thrombocytopenia: Status: Acute Code(s): O99.119 - Other diseases of the blood and blood-forming organs and certain disorders involving the immune mechanism complicating , unspecified trimester; D69.6 - Thrombocytopenia, unspecified (2) Anxiety: Status: Acute Code(s): F41.9 - Anxiety disorder, unspecified (3) Ramesh-Danlos syndrome: Status: Acute Code(s): Q79.60 - Ramesh-Danlos syndrome, unspecified (4) Vaginal delivery: Status: Acute Code(s): O80 - Encounter for full-term uncomplicated delivery Plan 1) Routine care 2) Pain management, declines prescription for motrin, will use OTC 3) Vitals stable 4) Follow up 2 weeks and 6 weeks PP 5) D/C home Medications at Discharge Home Medications kdxcgkay-oul-Ir-FA 1 mg tablet 1 tab PO DAILY Check with primary doctor 05/15/22 acetaminophen 500 mg tablet 1,000 mg PO Q6H PRN PRN Pain 1-10 Or Fever #0 tabs 05/27/22 benzocaine 20 %-menthol 0.5 % topical aerosol (Dermoplast (with menthol)) 1 spray topical TID PRN PRN perineal discomfort #0 grams 05/27/22 ibuprofen 600 mg tablet 600 mg PO Q6H PRN PRN Pain Score 1-3 #0 tabs 05/27/22 Weight / BMI Weight Weight: 167 lb 4 oz Body Mass Index (BMI) 22.6 ABG / Lab / Microbiology Data Result Diagrams: 05/27/22 04:20 05/26/22 10:20 Laboratory: Laboratory Results - last 24 hr 05/27/22 04:20: WBC 9.8, RBC 3.55 L, Hgb 9.5 L, Hct 30.5 L, MCV 85.9, MCH 26.8 L , MCHC 31.1 L, RDW Std Deviation 40.3, RDW Coeff of Marleny 13.1, Plt Count 129 L, MPV 11.7 Microbiology: Microbiology 05/26/22 12:45 Nasal Secretion SARS-CoV-2 Antigen (Rapid) - Final Meaningful Use Info Meaningful Use Diagnoses (Choose all that apply): None applicable Discharge Plan Admission Admit Date/Time: 05/26/22 12:25 Primary Reason for Your Visit: Attending Provider: Jayleen Oakes Primary Care Provider: Care Physician,No Primary Instructions Patient Instructions: After a Vaginal Discharge Orders/Prescriptions Prescriptions: New Dermoplast (with menthol) 20-0.5 % Aerosol 1 spray topical TID PRN PRN (Reason: perineal discomfort) Qty: 0 0RF Protocol: *Topical Application Instructions APPLICATION INSTRUCTIONS: 1 spray 3 times a day as needed for perineal discomfort acetaminophen 500 mg Tablet 1,000 mg PO Q6H PRN PRN (Reason: Pain 1-10 Or Fever) Qty: 0 0RF ibuprofen 600 mg Tablet 600 mg PO Q6H PRN PRN (Reason: Pain Score 1-3) Qty: 0 0RF Continued beuqqwbo-hoz-Ka-FA 1 mg Tablet 1 tab PO DAILY Discontinued famotidine 1 tablet PO.IVFORM DAILY Referrals / Follow Up: Care Physician,No Primary [Primary Care Provider] - Disposition Disposition (needs filled in before D/C Order can be placed): Home, Self Care
== END 2022-05-27 19:10 | disposition home or self-care (01) | DRG 806 ==
LOC: WPOUT 12:25 → WP 12:25
PROVIDERS: Admitting Provider Advanced Practice Midwife; Visit Provider Advanced Practice Midwife
DX: O99.12 Other diseases of the blood and blood-forming organs and certain disorders involving the immune mechanism complicating childbirth (principal); Z37.0 Single live birth; Q79.60 Ehlers-Danlos syndrome, unspecified; D69.6 Thrombocytopenia, unspecified; F41.9 Anxiety disorder, unspecified; J45.909 Unspecified asthma, uncomplicated; O99.344 Other mental disorders complicating childbirth; O99.892 Other specified diseases and conditions complicating childbirth; O99.52 Diseases of the respiratory system complicating childbirth; Z3A.37 37 weeks gestation of pregnancy
CPT/HCPCS: 59050; 80053; 82570; 84156; 84550; 85027; 86850; 86900; 86901; 87426; 99218; J7120; G0378; J2405

== ENCOUNTER 2022-07-01 11:49 | Day surgery (SDC) | payer BC, MEDICAID, SELFPAY ==
--- NOTE | 2022-07-01 | FALS_PTH ---
PATIENT: SCOTT BENNETT LOC: [facility] – [place] U#:[id number] AGE/SX: 27/F ROOM: RE07/01/[address]: Dr. Sandra Posey DO : 1995 BED: DIS: 07/01/2022 SPEC #: [id number] RECD: 07/01/22 17:38 STATUS: YARELI REYolanda #: [id number] HELENE: 07/01/22 00:[address]: Sandra Posey DEPT: SURGICAL PATHOLOGY RECD BY: Kg Barber ENTERED: 07/05/22 08:55 SP TYPE: FALL TUBES OTHR DR: Dr. Danisha Marques MD Tissues: Fallopian tube Procedures: Surgery Specimen Level II HEADER OPERATION: Laparoscopic salpingectomy PRE-OP DIAGNOSIS: Desires tubal sterilization TISSUE SUBMITTED: Bilateral fallopian tubes MICROSCOPIC DIAGNOSIS Right and left fallopian tubes, bilateral salpingectomies: Complete segments of fallopian tubes with no pathologic change. AM:vidal 07/06/2022 MICROSCOPIC DESCRIPTION Slides are reviewed. GROSS DESCRIPTION Received in fixative is one container labeled with the patient's name and designated bilateral fallopian tubes. The specimen consists of bilateral fallopian tubes including fimbrial ends measuring 7 cm in length and 0.6 cm in diameter and 7.5 cm in length and 0.5 cm in diameter. The fallopian tubes are not identified as right or left. Sections reveal unremarkable cut surfaces. Structural [employer] Helper sections are submitted in two cassettes with each cassette containing one fallopian tube. / BRUNO:vidal 07/05/2022 TC:4 CPT: 03549 x2
[2022-07-01] MEDS: Lactated Ringers 1,000 ML 15 ML IV (11:55)
[2022-07-01 12:18] LABS: Internal QC Validated? YES +Cl - CLEAR BKGD; Pregnancy, Urine Negative Negative
[2022-07-01 12:25] VITALS: BP 117/72; PULSE 68; RESP 16; TEMP 36.8; O2SAT 100; BMI 19.8
--- NOTE | 2022-07-01 13:16 | PCM.DC ---
Discharge Instructions Diet Discharge Diet: No restrictions Activity Discharge Activity: May Drive (Once you are strong enough to slam on a brake or turn a steering wheel sharply. Do not drive until at least 24 hours after surgery) and May Shower (Once you are more than 24 hours out from surgery) May resume sexual activity in: 1 week (No intercourse or soaking in water for 1 week) Ice area for (Minutes): 15 Weight Bearing Status: Weight bearing as tolerated Lifting Restrictions: Nothing heavier than baby for 1 week Dressing / Incision Call your doctor if your incision/area has: Continuous Slow Oozing, Sudden Increased Bleeding, Increased Pain/ Swelling, Increased Redness, Foul Smelling Discharge and Swelling at the incision site Call your doctor if you observe: Fever of 101 or Higher, Coldness, Increased Pain, Numbness or Tingling, Change in Color, Inability to urinate, Inability to have a bowel movement, Using more than 1 pad per hour, Shortness of breath, Dizziness, Swelling in the ankles, Chest pain, Prolonged hiccupping, Increased palpitations (irregular heartbeat), Calf discomfort and Uncontrolled pain Remove Dressing in: leave in place till F/U (Glue will start to peel off. Ok to remove or cut edges that are peeled up. There is suture underneath that will dissolve) Cleanse incision/area with: Soap & Water Follow Up Care Please Follow Up With: Sandra Posey DO When: 1 week Test Results: Test results from this visit will be discussed in further detail at your follow-up appointment, if applicable. Discharge Plan Admission Primary Reason for Your Visit: sterilization Attending Provider: Sandra Posey Primary Care Provider: Danisha Marques Discharge Orders/Prescriptions Prescriptions: New oxycodone-acetaminophen [Percocet] 5-325 mg tablet 1 tab PO Q6H PRN (Reason: pain) 7 Days Qty: 10 0RF Continued ibuprofen 600 mg Tablet 600 mg PO Q6H PRN PRN (Reason: Pain Score 1-3) Qty: 0 0RF sumatriptan succinate 100 mg Tablet 100 mg PO Q2H PRN (Reason: MIGRAINES) Rx Instructions: do not exceed 2 doses per 24 hrs Held acetaminophen 500 mg Tablet 1,000 mg PO Q6H PRN PRN (Reason: Pain 1-10 Or Fever) Qty: 0 0RF Hold Instructions: Resume on 07/04/22. stop while taking percocet Other Ambulatory Orders: Partial Thromboplast Time (Routine) Timeframe: 20220627 Facility: [facility] - Location: Laboratory Ordered By: Dr. Albino Doll Basic Metabolic Profile (BMP) (Routine) Timeframe: 20220627 Facility: [facility] - Location: Laboratory Ordered By: Dr. Albino Doll CBC-Complete Blood Cnt No Diff (Routine) Timeframe: 20220627 Facility: [facility] - Location: Laboratory Ordered By: Dr. Sandra Posey Liver Profile (Routine) Timeframe: 20220627 Facility: [facility] - Location: Laboratory Ordered By: Dr. Albino Doll Prothrombin Time w/INR (Routine) Timeframe: 20220627 Facility: [facility] - Location: Laboratory Ordered By: Dr. Albino Doll Thyroid Stim Hormone (TSH) (Routine) Timeframe: 20220627 Facility: [facility] - Location: Laboratory Ordered By: Dr. Albino Doll Referrals / Follow Up: Danisha Marques MD [Primary Care Provider] - Disposition Disposition (needs filled in before D/C Order can be placed): Home, Self Care
--- NOTE | 2022-07-01 13:18 | PCM.OPRPT ---
Problems Associated Problem List Diagnoses (1) Sterilization: Report of Operation Date of Procedure: 07/01/22 Pre-Operative Diagnosis: Request for sterilization Post-Operative Diagnosis: As above Surgery/Procedure Performed:: Laparoscopic bilateral salpingectomy Description of Surgical Findings:: Normal appearing pelvis. Normal uterus, bilateral fallopian tubes, and bilateral ovaries. Surgeon: Sandra Posey plater apprentice: Hazel Dowell [id number] Type of Anesthesia: General Special Medications: None Specimen's removed: Bilateral fallopian tubes Drains: None Estimated Blood Loss (mL): < 500 Fluids Replaced: 800 cc Description of Procedure: Pt was taken to the operating room where general anesthesia was induced. She was prepped and draped in the dorsal lithotomy position using yellowfin stirrups. From below a weighted speculum was placed in the vagina to expose the cervix. A single-tooth tenaculum was placed on the anterior lip of the cervix. The uterine manipulator was placed. Gloves were changed and attention was turned to the abdominal portion of the procedure. Local was infiltrated all port sites. An infraumbilical incision was made to accommodate a 5 mm port. A 5 mm port was placed under direct visualization. Once confirmed intraperitoneal, CO2 insufflation was initiated. The patient was placed in Trendelenburg. A left lateral 5 mm port was placed. A right lateral 5 mm port was placed. The pelvis was inspected and findings as noted above. The right fallopian tube was followed out to the fimbriated end. Using the LigaSure device the mesosalpinx was serially clamped, cauterized, and ligated hugging along the fallopian tube until reaching level of the cornua. Once at the level of the cornua the fallopian tube was transected and removed. The same was performed on the left to remove the left fallopian tube. Bilateral fallopian tubes were sent to pathology for review. Hemostasis was noted. The ports were removed and the abdomen was exsufflated. The port sites were closed with 4-0 Monocryl and glue. Instruments were removed from the vagina and a vaginal sweep was performed. Instrument, sponge, sharp counts were correct. The patient was taken to the recovery in stable condition. The product safety technical assistant was present for the entire care and assisted with draping the patient, holding the camera, retraction, and closure of port sites. Grafts/Implants Used: None Procedure Start Time: 13:20 Procedure Stop Time: 14:35 Complications None Admit VTE Documentation VTE Present on Admission: No VTE Mechan Device Prophylaxis: SCD's
[2022-07-01] MEDS: Bupivacaine 0.25% 30 ML Vial (13:56)
[2022-07-01 14:45] VITALS: BP 117/72; BP 131/91; PULSE 78; RESP 15; TEMP 36.5; O2SAT 99
[2022-07-01 15:00] VITALS: BP 117/72; BP 121/87; PULSE 65; RESP 15; O2SAT 98
[2022-07-01 15:02] VITALS: BP 117/72; BP 121/86; PULSE 54; RESP 18; TEMP 36.6; O2SAT 100
[2022-07-01 15:22] VITALS: BP 117/72
--- NOTE | 2022-07-01 15:30 | SUR.PHASEII ---
THIS NURSE WENT IN TO CHECK ON PATIENT SHE WAS SUPPOSED TO BE GETTING READY TO LEAVE. SHE HAD THE LIGHTS OFF AND WAS HOPING TO GET DRESSED AFTER THE IBUPROFEN STARTED WORKING ON HER HEADACHE.
--- NOTE | 2022-07-01 17:26 | SUR.PHASEII ---
pt left prescriptions in AC room- found by care mgr. the medication has been returned to our retail pharmacy and the pt was called to inform them that the medications were forgotten and will be returned to pharmacy and they can pick them up there. she voices understanding
== END 2022-07-01 16:20 | disposition home or self-care (01) ==
LOC: SDC 11:55 → AC 11:55
PROVIDERS: PCP Internal Medicine; Visit Provider Obstetrics & Gynecology
PROC: (CPT 58661; principal; 2022-07-01 13:05)
DX: Z30.2 Encounter for sterilization (principal); Q79.60 Ehlers-Danlos syndrome, unspecified; J45.909 Unspecified asthma, uncomplicated
CPT/HCPCS: 58661; 00840; 81025; 86850; 86900; 86901; 88302; J7120; J2405